=== PATIENT | male | born 1995 | race Two or more races ===

== ENCOUNTER 2024-11-18 10:32 | Emergency (ER) | payer SELFPAY ==
[~2024-11-18] VITALS: Ht 175.3 cm; Wt 80.9 kg
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
[2024-11-18] MEDS ORDERED: NAPR-957 PO (13:25)
[2024-11-18] MEDS ORDERED: METH-1181 PO (13:25)
[2024-11-18 13:32] VITALS: BP 138/78; PULSE 64; RESP 16; TEMP 98.3; O2SAT 98
== END 2024-11-18 13:34 | disposition home or self-care (01) ==
LOC: ER 10:32
DX: M54.2 Cervicalgia (principal); R51.9 Headache, unspecified; V89.2XXA Person injured in unspecified motor-vehicle accident, traffic, initial encounter; Y93.89 Activity, other specified; Y92.410 Unspecified street and highway as the place of occurrence of the external cause; Y99.8 Other external cause status
CPT/HCPCS: 70450; 72040